=== PATIENT | female | born 1975 | race African-American/Black ===

== ENCOUNTER 2017-10-21 11:22 | Inpatient (IN) ==
[2017-10-21 13:17] LABS: Apearance,Urine Slightly Hazy (Clear); Bacteria,Urine Occasional /HPF (Few); Bilirubin,Urine Negative (Negative); Blood, Urine Small mg/dL (Negative); Glucose,Urine (UA) Negative (Negative); Ketones,Urine Negative (Negative); Mucus,Urine Occasional /LPF (Occasional); Nitrite,Urine Negative (Negative); Protein,Urine Negative; RBC,Urine 4 /HPF (0-4); Squamous Epithelial Cell,Urine Occasional /HPF (0-10); Urine Color Yellow (Yellow); Urine Specific Gravity 1.017 (1.001-1.035); WBC,Urine 2 /HPF (0-6)
[2017-10-21 15:06] LABS: Basophils # 0.1 10*3/uL (0.0-0.2); Basophils % 0.3 % (0.0-0.8); Eosinophils # 0.2 10*3/uL (0.0-0.87); Hematocrit 36.3 VOL% (35.7-47.0); Hemoglobin 11.8 GM/DL (12.0-16.0); Immature Granulocytes % 0.5 %; Immature Granulocytes Absolute 0.08 #; Lymphocytes # 2.9 10*3/uL (1.4-4.0); Lymphocytes % 17.5 % (21.3-54.2); Mean Corpuscular HGB Conc 32.5 GM/DL (32-36); Mean Corpuscular Hemoglobin 32 PG (27-34); Mean Corpuscular Volume 98.4 FL (87-102); Mean Platelet Volume 9.2 FL (9.6-12.0); Monocytes # 1.4 10*3/uL (0.11-0.8); Monocytes % 8.5 % (1.7-12.7); Neutrophils # 12.1 10*3/uL (1.4-7.4); Neutrophils % 72.2 % (38.7-73.9); Platelet Count 272 T/CUMM (130-400); Red Blood Count 3.69 MC/CUMM (3.8-5.5); Red Cell Distribution Width 11.9 % (9.3-17.3); White Blood Count 16.8 T/CUMM (4-12)
[2017-10-21] MEDS ORDERED: KETOROLAC 60 MG/2 ML VIAL IM STA (15:29)
[2017-10-21 15:40] LABS: Albumin 3.5 G/DL (3.4-5.0); Bilirubin,Total 0.9 MG/DL (0.2-1.0); Osmolality,Calculated 271.7 MOS/KG (273-304); Potassium 4.1 MMOL/L (3.5-5.1); Total Protein 6.7 G/DL (6.4-8.3)
[2017-10-21] MEDS ORDERED: KETOROLAC 30 MG/1 ML VIAL IV STA (15:49)
[2017-10-21] MEDS ORDERED: KETOROLAC 30 MG/1 ML VIAL ONE (15:50)
[2017-10-21] MEDS ORDERED: MAGNESIUM SULF RIDER 2 GM in PREMIX 1 EACH IV PRN (17:05)
[2017-10-21] MEDS ORDERED: HYDROmorphone 2 MG/1 ML VIAL IV PRN (17:05)
[2017-10-21] MEDS ORDERED: ACETAMINOPHEN 325 MG TABLET PO PRN (17:05)
[2017-10-21] MEDS ORDERED: MAGNESIUM SULF RIDER 4 GM in PREMIX 1 EACH IV PRN (17:05)
[2017-10-21] MEDS ORDERED: ONDANSETRON 4 MG/2 ML VIAL IV PRN (17:05)
[2017-10-21] MEDS: CIPROFLOXACIN INJ 400 MG in PREMIX 1 EACH IV SCH (17:43)
[2017-10-21] MEDS: SODIUM CHLORIDE 0.9% 1,000 ML IV SCH (17:43)
[2017-10-21] MEDS: metroNIDAZOLE INJ 500 MG in PREMIX 1 EACH IV SCH (18:50)
[2017-10-21] MEDS: METOPROLOL TARTRATE 25 MG TABLET PO SCH (21:10)
[2017-10-22] MEDS: metroNIDAZOLE INJ 500 MG in PREMIX 1 EACH IV SCH ×5 (03:57→23:35)
[2017-10-22] MEDS: SODIUM CHLORIDE 0.9% 1,000 ML IV SCH ×4 (03:57→23:34)
[2017-10-22 05:53] LABS: Basophils % 0.2 % (0.0-0.8); Eosinophils # 0.1 10*3/uL (0.0-0.87); Eosinophils % 0.7 % (0.00-10.9); Hematocrit 33.6 VOL% (35.7-47.0); Hemoglobin 11.2 GM/DL (12.0-16.0); Immature Granulocytes % 0.5 %; Immature Granulocytes Absolute 0.08 #; Lymphocytes # 2.7 10*3/uL (1.4-4.0); Lymphocytes % 16.5 % (21.3-54.2); Mean Corpuscular HGB Conc 33.3 GM/DL (32-36); Mean Corpuscular Hemoglobin 32 PG (27-34); Mean Corpuscular Volume 95.7 FL (87-102); Mean Platelet Volume 9.7 FL (9.6-12.0); Monocytes # 1.6 10*3/uL (0.11-0.8); Monocytes % 9.7 % (1.7-12.7); Neutrophils # 12.1 10*3/uL (1.4-7.4); Neutrophils % 72.4 % (38.7-73.9); Platelet Count 265 T/CUMM (130-400); Red Blood Count 3.51 MC/CUMM (3.8-5.5); Red Cell Distribution Width 11.9 % (9.3-17.3); White Blood Count 16.6 T/CUMM (4-12)
[2017-10-22] MEDS ORDERED: metroNIDAZOLE 500 MG TABLET PO ONE (06:00)
[2017-10-22] MEDS ORDERED: CIPROFLOXACIN 500 MG TABLET PO ONE (06:00)
[2017-10-22] MEDS: CIPROFLOXACIN INJ 400 MG in PREMIX 1 EACH IV SCH ×2 (06:03→17:04)
[2017-10-22 06:18] LABS: Osmolality,Calculated 270.8 MOS/KG (273-304); Potassium 3.7 MMOL/L (3.5-5.1)
[2017-10-22] MEDS: METOPROLOL TARTRATE 25 MG TABLET PO SCH ×2 (11:07→21:26)
[2017-10-22] MEDS: PANTOPRAZOLE 40 MG TABLET PO SCH (11:07)
[2017-10-23] MEDS: SODIUM CHLORIDE 0.9% 1,000 ML IV SCH ×2 (02:13→09:42)
[2017-10-23] MEDS: CIPROFLOXACIN INJ 400 MG in PREMIX 1 EACH IV SCH (06:00)
[2017-10-23] MEDS ORDERED: diphenhydrAMINE CAP 25 MG CAPSULE PO PRN (09:13)
[2017-10-23] MEDS: PANTOPRAZOLE 40 MG TABLET PO SCH (09:35)
[2017-10-23] MEDS: METOPROLOL TARTRATE 25 MG TABLET PO SCH (09:35)
[2017-10-23] MEDS: metroNIDAZOLE INJ 500 MG in PREMIX 1 EACH IV SCH ×2 (09:40→13:05)
[2017-10-23 11:19] VITALS: BP 121/62
== END 2017-10-23 14:20 | disposition home or self-care (01) | DRG 392 ==
LOC: N.ED 11:22 → SUATTDRO 16:00 → N.EDINP 16:00 → N.3E 16:59
PROVIDERS: ADMIT Hospitalist; ATTEND Internal Medicine Geriatric Medicine